=== PATIENT | male | born 1990 | race Caucasian/White ===

== ENCOUNTER 2017-11-10 16:11 | Emergency (ER) | payer MEDICAID ==
[~2017-11-10] VITALS: Ht 175.3 cm; Wt 77.1 kg
[2017-11-10 16:14] VITALS: BP_SYST 132
[2017-11-10] MEDS ORDERED: IBUPROFEN 800 MG TABLET PO ONE (16:45)
[2017-11-10 18:06] VITALS: BP_SYST 124
== END 2017-11-10 18:06 | disposition home or self-care (01) ==
LOC: SED 16:11
DX: S93.504A Unspecified sprain of right lesser toe(s), initial encounter (principal); J06.9 Acute upper respiratory infection, unspecified; R03.0 Elevated blood-pressure reading, without diagnosis of hypertension; X58.XXXA Exposure to other specified factors, initial encounter; Y93.41 Activity, dancing; Y92.89 Other specified places as the place of occurrence of the external cause; Y99.8 Other external cause status
CPT/HCPCS: 36415; 86403; 87081; 99285

== ENCOUNTER 2017-11-20 08:44 | Emergency (ER) | payer MEDICAID, OTHER ==
[~2017-11-20] VITALS: Ht 177.8 cm; Wt 77.1 kg
[2017-11-20 08:50] VITALS: BP_SYST 137
== END 2017-11-20 11:00 | disposition left against medical advice (07) ==
LOC: SED 08:44
DX: T79.A12A Traumatic compartment syndrome of left upper extremity, initial encounter (principal); F17.210 Nicotine dependence, cigarettes, uncomplicated; Z53.20 Procedure and treatment not carried out because of patient's decision for unspecified reasons; X58.XXXA Exposure to other specified factors, initial encounter
CPT/HCPCS: 99282

== ENCOUNTER 2018-01-28 09:39 | Emergency (ER) | payer MEDICAID, OTHER ==
[~2018-01-28] VITALS: Ht 177.8 cm; Wt 79.4 kg
[2018-01-28 09:55] VITALS: BP_SYST 121
--- NOTE | 2018-01-28 10:29 | NUR ---
Pt to bed 1
--- NOTE | 2018-01-28 10:45 | NUR ---
Dr. Solomon at bedside for evaluation
--- NOTE | 2018-01-28 11:00 | NUR ---
Pt brought by self, A&Ox4, pt presents to ER with R hand pain and swelling after falling from skateboard, VS WNL, no open wounds noted, afebrile.
--- NOTE | 2018-01-28 11:38 | NUR ---
Patient to ER bed 08 to gown for evaluation. Side rails up.
--- NOTE | 2018-01-28 11:40 | NUR ---
Emmett alonsocarlee in [facility] - 01/28/18 at 1601 by [email or web address] Tye Hernandez at bedside examining patient
[2018-01-28 11:42] VITALS: BP_SYST 119
--- NOTE | 2018-01-28 11:42 | NUR ---
Patient given written and verbal discharge instructions and verbalizes understanding. ER MD discussed with patient the results and treatment provided. Patient in stable condition. ID arm band removed. Rx of tramadol, ibuprofen given. Patient educated on pain management and to follow up with PMD. Pain Scale 10/10, will take PO meds at home. Opportunity for questions provided and answered.
== END 2018-01-28 11:42 | disposition home or self-care (01) ==
LOC: SED 09:39
DX: S62.396A Other fracture of fifth metacarpal bone, right hand, initial encounter for closed fracture (principal); V00.131A Fall from skateboard, initial encounter; Y93.51 Activity, roller skating (inline) and skateboarding; Y92.89 Other specified places as the place of occurrence of the external cause; Y99.8 Other external cause status
CPT/HCPCS: 99284

== ENCOUNTER 2018-05-05 12:58 | Emergency (ER) | payer MEDICAID ==
[~2018-05-05] VITALS: Ht 175.3 cm; Wt 86.2 kg
[2018-05-05 13:19] VITALS: BP_SYST 142
[2018-05-05 15:05] VITALS: BP_SYST 146
== END 2018-05-05 15:06 | disposition home or self-care (01) ==
LOC: SED 12:58
DX: J40 Bronchitis, not specified as acute or chronic (principal); R03.0 Elevated blood-pressure reading, without diagnosis of hypertension; Z71.6 Tobacco abuse counseling
CPT/HCPCS: 71045; 99283

== ENCOUNTER 2018-10-07 20:38 | Emergency (ER) | payer MEDICAID ==
[~2018-10-07] VITALS: Ht 177.8 cm; Wt 86.2 kg
[2018-10-07 20:43] VITALS: BP_SYST 133
[2018-10-07 21:10] LABS: BILIRUBIN,URINE NEGATIVE (NEGATIVE); BLOOD, URINE NEGATIVE (NEGATIVE); CLARITY/URINE CLEAR (CLEAR); COLOR,URINE YELLOW (YELLOW); GLUCOSE,URINE NEGATIVE (NEGATIVE); KETONES,URINE NEGATIVE (NEGATIVE); LEUKOCYTE ESTERASE ,URINE NEGATIVE (NEGATIVE); NITRITE, URINE NEGATIVE (NEGATIVE); PH,URINE 8.5 (5.0-8.0); PROTEIN URINE NEGATIVE (NEGATIVE)
[2018-10-07] MEDS ORDERED: NACL 0.9% 1,000 ML IV ONE (21:15)
[2018-10-07] MEDS ORDERED: ONDANSETRON HCL 4 MG/2 ML VIAL IVP ONE (21:15)
[2018-10-07 21:19] LABS: BARBITURATE, URINE NEGATIVE (NEG <=200); BENZODIAZEPINE, URINE NEGATIVE (NEG <=150); CANNABINOID, URINE NEGATIVE (NEG <=50); COCAINE, URINE NEGATIVE (NEG <=150); METHAMPHETAMINES SCREEN,URINE NEGATIVE (NEG <=500); OPIATE, URINE NEGATIVE (NEG <=100); PHENCYCLIDINE SCREEN,URINE NEGATIVE (NEG <=25); UR TRICYCLIC ANTIDEPRESSANTS NEGATIVE (NEG <=300); URINE AMPHETAMINE NEGATIVE (NEG <=500); URINE METHADONE NEGATIVE (NEG <=200); URINE OXYCODONE SCREEN NEGATIVE (NEG <=100); URINE PROPOXYPHENE SCREEN NEGATIVE (NEG <=300)
[2018-10-07 21:22] LABS: BASOPHILS % (AUTO) 0.7 % (0.0-2.0); EOSINOPHILS # (AUTO) 0.3 K/uL (0.0-0.4); EOSINOPHILS % (AUTO) 4.3 % (0.0-4.0); HEMATOCRIT 42.9 % (36-54); LYMPHOCYTES # (AUTO) 1.4 K/uL (1.0-5.5); LYMPHOCYTES % (AUTO) 22.4 % (20.5-51.5); MEAN CORPUSCULAR HEMOGLOBIN 29 pg (27-31); MEAN CORPUSCULAR HGB CONC 33 % (32-36); MEAN CORPUSCULAR VOLUME 90 fL (79.0-98.0); MONOCYTES # (AUTO) 0.6 K/uL (0.0-1.0); MONOCYTES % (AUTO) 9.5 % (1.7-9.3); NEUTROPHILS # (AUTO) 4.1 K/uL (1.8-7.7); NEUTROPHILS % (AUTO) 63.1 % (40.0-70.0); PLATELET COUNT (AUTO) 204 K/uL (130-430); RED BLOOD CELL COUNT(AUTO) 4.75 MIL/uL (4.2-6.2); RED CELL DISTRIBUTION WIDTH 11.9 % (9.0-15.0); WHITE BLOOD COUNT (AUTO) 6.4 K/uL (4.8-10.8)
[2018-10-07 21:33] LABS: CALCIUM 8.9 mg/dL (8.4-11.0); CREATININE 0.96 mg/dL (0.55-1.30); POTASSIUM 3.9 mmol/L (3.5-5.1)
[2018-10-07 21:39] LABS: ALBUMIN 4.1 g/dL (3.4-4.8); TOTAL BILIRUBIN 0.4 mg/dL (0.0-1.0)
[2018-10-07 22:00] VITALS: BP_SYST 132
== END 2018-10-07 22:00 | disposition home or self-care (01) ==
LOC: SED 20:38
DX: F41.9 Anxiety disorder, unspecified (principal); R05 Cough; R03.0 Elevated blood-pressure reading, without diagnosis of hypertension; J45.909 Unspecified asthma, uncomplicated
CPT/HCPCS: 36415; 80053; 80307; 81003; 85025; 86710; 96361; 96374; 99283; J2405; J7030; 99284

== ENCOUNTER 2019-01-03 09:47 | Emergency (ER) | payer MEDICAID ==
[~2019-01-03] VITALS: Ht 175.3 cm; Wt 91.6 kg
[2019-01-03 09:52] VITALS: BP_SYST 135
[2019-01-03 11:48] VITALS: BP_SYST 138
== END 2019-01-03 11:48 | disposition home or self-care (01) ==
LOC: SED 09:47
DX: S52.124A Nondisplaced fracture of head of right radius, initial encounter for closed fracture (principal); J45.909 Unspecified asthma, uncomplicated; V00.131A Fall from skateboard, initial encounter; Y93.89 Activity, other specified; Y92.89 Other specified places as the place of occurrence of the external cause; Y99.8 Other external cause status
CPT/HCPCS: 99283

== ENCOUNTER 2019-07-11 13:16 | Emergency (ER) | payer MEDICAID ==
[~2019-07-11] VITALS: Ht 177.8 cm; Wt 79.4 kg
[2019-07-11 13:20] VITALS: BP_SYST 107
[2019-07-11 14:24] VITALS: BP_SYST 107
== END 2019-07-11 14:24 | disposition home or self-care (01) ==
LOC: SED 13:16
DX: R05 Cough (principal); F17.210 Nicotine dependence, cigarettes, uncomplicated; J45.909 Unspecified asthma, uncomplicated; Z71.6 Tobacco abuse counseling
CPT/HCPCS: 99283